=== PATIENT | male | born 1985 | race African-American/Black ===

== ENCOUNTER 2018-04-26 23:39 | Emergency (ER) | payer SELFPAY ==
[~2018-04-26] VITALS: Ht 188 cm; Wt 67.4 kg
[2018-04-27 00:47] LABS: MCH 27.4 PG (29.0-34.0); MCHC 33.3 G/DL (30.0-36.0); MCV 82.2 FL (86-99); PLATELET COUNT 243 K/uL (156-360); RBC DIS.WIDTH-CV 13.5 % (11.8-14.6); RBC DIS.WIDTH-SD 40.6 % (39-53); RED BLOOD COUNT 4.38 M/uL (4.00-5.50); WHITE BLOOD COUNT 8.4 K/uL (4.1-10.2)
[2018-04-27 00:58] LABS: CHLORIDE 107 mEq/L (99-109); POTASSIUM 3.5 mEq/L (3.7-5.4); SODIUM 140 mEq/L (136-147)
[2018-04-27 01:00] LABS: GLUCOSE 87 mg/dL (70-99)
[2018-04-27 01:04] LABS: CREATININE 1.2 mg/dL (0.6-1.3)
[2018-04-27 01:05] LABS: GFR ESTIMATE (CALCULATED) > 59 mL/min/ (58.99-99999); UREA NITROGEN (BUN) 15 mg/dL (9-23)
[2018-04-27 01:12] LABS: TROP-I INTERPRETATION NEGATIVE; TROPONIN-I < 0.01 ng/mL (0.0-0.30)
[2018-04-27 01:29] VITALS: BP 132/83
== END 2018-04-27 01:30 | disposition home or self-care (01) ==
LOC: EME 23:39
PROVIDERS: Physician Assistant
DX: R07.89 Other chest pain (principal); F17.200 Nicotine dependence, unspecified, uncomplicated
CPT/HCPCS: 80048; 84484; 85027; 93005